=== PATIENT | female | born 1990 | race Native Hawaiian/Other Pacific Islander ===

== ENCOUNTER 2016-10-03 00:34 | Emergency (ER) | payer OTHER ==
[~2016-10-03] VITALS: Ht 152.4 cm; Wt 63.0 kg
[2016-10-03 01:42] LABS: PLATELET COUNT 317 K/uL (152-353)
[2016-10-03 02:00] LABS: POTASSIUM 3.8 mmol/L (3.6-5.2); SODIUM 138 mmol/L (136-145)
[2016-10-03 05:17] VITALS: BP 138/87; TEMP 98.6
== END 2016-10-03 05:17 | disposition home or self-care (01) ==
LOC: ED 00:34
DX: L03.213 Periorbital cellulitis (principal); H05.012 Cellulitis of left orbit
CPT/HCPCS: 36415; 80053; 85027; 96372; 96374; 99284; J0696; J1200; J1885; Q9963